=== PATIENT | male | born 1940 | race Caucasian/White ===

== ENCOUNTER 2016-05-08 00:41 | Observation (INO) ==
[2016-05-08] MEDS ORDERED: Ipratropium/Albuterol Neb 3 ML IH ONE (02:54)
--- NOTE | 2016-05-08 02:59 | Emergency Department Note ---
Disposition Clinical Impression: Acute exacerbation of chronic obstructive pulmonary disease, Chronic bronchitis Disposition: Admitted As Inpatient Condition: Fair Referrals: Deepak Mohan CNP [Primary Care Provider] - Forms: ED Satisfaction Letter Time of Disposition: 03:05 SOB HPI - General Chief Complaint: ED Shortness of Breath/Dyspnea Stated Complaint: SOB Time Seen by Provider: 05/08/16 02:33 Source: patient Limitations: no limitations Nursing Notes Reviewed: Yes Vital Signs Reviewed: Yes - History of Present Illness Patient was seen on May 02, , , and again this morning at 9 AM and a second visit now for evaluation of dyspnea and tachypnea. He had be and antibiotics azithromycin recently. Subsequently this morning placed on Levaquin. He reports that he tried to go home and dyspnea kept him awake and he felt like he would smother. no CP , no fever ct this am did nto show pneumonia or PE. Pt Subjective Complaint: shortness of breath, cough, anxiety Onset (ago): day(s) Context: recent illness Severity: severe Consistency/Duration: constant Improves with: oxygen, rest Worsens with: exertion, movement, coughing Known history of: COPD Associated symptoms: Reports: cough, wheezing, sputum production. Denies: nausea/vomiting, syncope, abdominal pain Treatment prior to arrival: oxygen, bronchodilator, other (nerve pill) Cough present: Yes Cough Description: Voluntary, Non-Productive, Moist Cough Frequency: Intermittent Sputum production: Yes Sputum Amount: Scant Sputum Color: White - Related Data Home Medications Medication Instructions Recorded Confirmed Omeprazole [PriLOSEC] 20 mg PO BIDAC 02/17/15 05/08/16 Atenolol [Tenormin] 50 mg PO BID 07/15/15 05/08/16 ClonazePAM [Klonopin] 1 tab PO QID 07/15/15 05/08/16 Ondansetron HCl [Zofran] 8 mg PO BID PRN 07/15/15 05/08/16 Tamsulosin [Flomax] 0.4 mg PO DAILY 07/15/15 05/08/16 Warfarin [Coumadin] 3 mg PO 1800 09/28/15 05/08/16 Albuterol Sulfate [Proair Hfa] 2 puff IH Q4H 11/22/15 05/08/16 Chlorthalidone 25 mg PO DAILY 11/22/15 05/08/16 Ipratropium/Albuterol Neb [Duoneb] 3 ml IH Q6HR 11/22/15 05/08/16 Oxygen 1 l IH HS 11/22/15 05/08/16 Previous Rx's Medication Instructions Recorded GuaiFENesin/Dextromethorphan 5 ml PO Q4-6H PRN #118 ml 05/02/16 [Robitussin Cough-Chest Dm Liq] PredniSONE 40 mg PO DAILY #30 tablet 05/02/16 Levofloxacin [Levaquin] 250 mg PO DAILY #10 tablet 05/07/16 Allergies Allergy/AdvReac Type Severity Reaction Status Date / Time Penicillins Allergy Hives Verified 05/08/16 01:37 Sulfa (Sulfonamide Allergy Hives Verified 05/08/16 01:37 Antibiotics) rosuvastatin [From Crestor] AdvReac Gastrointestinal Verified 05/08/16 01:37 Upset tramadol AdvReac Dizziness Verified 05/08/16 01:37 All systems ED: reviewed and negative except as stated. Respiratory: Reports: as per HPI, cough, dyspnea, wheezes Past Medical History - Past Medical History Medical history: Reports: asthma, atrial fibrillation, COPD, GERD, hyperlipidemia, hypertension Surgical history: Reports: orthopedic, other (Epidural injections), sinus surgery, other (lip/palate surgery) Psychiatric history: Reports: anxiety, depression - Social History Smoking Status: Former smoker Smokeless Tobacco Status: No Alcohol use: Reports: none Drug use: Reports: none Physical Exam Constitutional: Patient is oriented to person, place, and time. Skin color is pink. Appears well hydrated, body habitus inc AP diameter. appears dyspneic at rest Head: Normocephalic and atraumatic. External ear exam normal Nose: Nose normal. Mouth/Throat: Uvula is midline, oropharynx is clear and moist and mucous membranes are normal. Eyes: Conjunctivae nl, extraocular motions and lids are normal. Pupils are equal , round, and reactive to light. Neck: Normal range of motion and phonation normal. Neck supple. Cardiovascular: Normal rate, regular rhythm, normal heart sounds. Pulmonary/Chest: no Respiratory distress. Respiratory Effort normal and breath sounds diminished , wheezing throughout. tachypnea. Abdominal: Soft. Normal appearance and bowel sounds are normal. no tenderness, no masses, no guarding, no rebound Musculoskeletal: Good distal pulses. Soft compartments. Brisk cap refill. Extremities: Normal range of motion.Intact peripheral pulses. No Edema. Extremity skin color nl, no calf tenderness or palpable cords. Neurological: Patient is alert and oriented without evidence of obvious motor deficits Skin: Skin is warm, dry and intact. color is , cap refill is Psychiatric: Patient has anxious mood and affect. Patient speech is normal and behavior is normal. Thought content normal. - General Limitations: no limitations General appearance: alert, anxious Course - Reevaluation(s) Reevaluation #1: disc course w/ dr Thomas who knows pt and his condition well and agrees that he will benefit from short [facility]. he has requested that I write some admiting orders and he will see pt in am. Time: 03:03 Vital Signs Temperature 98.1 F 05/08/16 01:25 Pulse Rate 85 05/08/16 01:25 Respiratory Rate 22 05/08/16 01:25 Blood Pressure 183/97 05/08/16 01:25 O2 Sat by Pulse Oximetry 97 05/08/16 01:25 Temperature 98.1 F 05/08/16 01:25 Pulse Rate 85 05/08/16 01:25 Respiratory Rate 22 05/08/16 01:25 Blood Pressure 183/97 05/08/16 01:25 O2 Sat by Pulse Oximetry 97 05/08/16 01:25 Oxygen Delivery Oxygen Delivery Room Air Shortness of Breath/Dyspnea - [facility] Narrative Medical decision making narrative: pt as intractable exac COPD and will require hospitalization as he has failed outpt management - Medical Records Medical records reviewed: Yes I reviewed the patient's medical records.
[2016-05-08] MEDS ORDERED: OXYGEN IH SCH (04:06)
[2016-05-08] MEDS ORDERED: Acetaminophen 325 MG TABLET PO PRN (04:06)
[2016-05-08] MEDS ORDERED: Naloxone 0.4 MG/ML INJ IVP PRN (04:06)
[2016-05-08] MEDS: ClonazePAM 1 MG TABLET PO SCH ×2 (07:57→12:45)
[2016-05-08] MEDS ORDERED: PredniSONE 10 MG TABLET PO SCH (09:00)
[2016-05-08] MEDS ORDERED: Ipratropium/Albuterol Neb 3 ML IH SCH (10:00)
--- NOTE | 2016-05-08 11:43 | Internal Med History&Physical ---
Date of Encounter: 05/08/16 Time of Encounter: 11:40 Assessment and Plan (1) Acute exacerbation of chronic obstructive pulmonary disease Current visit: Yes Status: Acute Patient has had recent exacerbation of his chronic COPD. It is not severe, does not require oxygen, and he is on a taper of prednisone. He has a nebulizer machine at home as well as oxygen for nighttime use. His chest CT did not show any infiltrate. He is not requiring oxygen supplement in the hospital and his saturations are in the mid to high 90s. I spoken to him about going home today and continue the taper of prednisone. He does not need the Levaquin. Please see the discharge summary. (2) Atrial fibrillation Current visit: Yes Status: Chronic Chronic atrial fibrillation. He is rate controlled. No angina or CHF. No change in his beta rogelio medication. Qualifiers: Qualified Code(s): I48.2 - Chronic atrial fibrillation (3) Anxiety Current visit: Yes Status: Acute He admits to getting anxious when he cannot breathe well. He does use his clonazepam 3 times a day and he states that has been very helpful. I have talked him about adding an SSRI and he said he cannot tolerate Paxil. I will speak with Deepak Mohan his PCP as to her opinion for additional anxiety treatment. She knows him well and he has tried numerous medications without relief or had side effects. (4) Hypertension Current visit: No Status: Acute His blood pressure is not under optimal control. He had been placed on chlorthalidone but he said that that gave him an upset stomach. He no longer uses it. He has been prescribed losartan in the past, for some reason it is not on his medication list. He is to restart that and he will check at home to see if he has that prescription before we call in more. He is to monitor his pressure and report to the office. Qualifiers: Hypertension type: essential hypertension Qualified Code(s): I10 - Essential (primary) hypertension (5) Anticoagulation goal of INR 2 to 3 Current visit: Yes Status: Acute Currently he takes Coumadin and his INR is 1.6. He has been taking Levaquin recently and this may increase that INR. Before changing his dose of Coumadin and I would rather recheck his INR first. Internal Medicine - H&P: HPI Chief complaint: I got short of breath and had to come to the emergency room Admitted From: Emergency Dept Plans for Post Hospital Care: Home History of present illness: Mr. Abraham is a 75 year old male with known history of COPD, hypertension, anxiety, GERD and atrial fibrillation. He had been to the emergency room on May 02, and then again on the in the middle of the night. He had also been seen in the office a few days ago. He had been started on prednisone and Levaquin. He said that in the middle of the night he woke up and he was short of breath and had to come to the emergency room. His repeat workup was negative for PE, pneumonia, or other significant change from his chronic medical problems. However, having been to the ER twice in having seen the same ER doctor twice she called and we discussed admission to observation bed because of his dyspnea. He states he has not had any angina or cardiac type chest pain or palpitations. He has not had significant sputum production or hemoptysis. He has had no recent travel or unusual exposures. He states that he gets anxious when he cannot breathe. He has oxygen at home, nebulizer machine as well as his usual medications including Klonopin. He states he feels better now. The nurses report that he has been out of bed and saturations are in the mid 90s on room air. He states the nebulizer treatments have been helpful. He has not been requiring oxygen. Past Med Surg Social Fam HX - Past Medical History Medical history: asthma, atrial fibrillation, COPD, GERD, hyperlipidemia, hypertension Psychiatric history: anxiety, depression - Past Surgical History Surgical History: orthopedic, other, sinus surgery, other - Social History Smoking Status: Former smoker Smokeless Tobacco Status: No Alcohol use: none Drug use: none - Family History Mother History Unknown: Yes Father History Unknown: Yes Internal Medicine - H&P: Meds Omeprazole [PriLOSEC] 20 mg PO BIDAC 02/17/15 [History] Atenolol [Tenormin] 50 mg PO BID 07/15/15 [History] ClonazePAM [Klonopin] 1 tab PO TID 07/15/15 [History] Warfarin [Coumadin] 3 mg PO 1800 09/28/15 [History] Albuterol Sulfate [Proair Hfa] 2 puff IH Q4H 11/22/15 [History] Ipratropium/Albuterol Neb [Duoneb] 3 ml IH Q6HR 11/22/15 [History] Oxygen 1 l IH HS 11/22/15 [History] GuaiFENesin/Dextromethorphan [Robitussin Cough-Chest Dm Liq] 5 ml PO Q4-6H PRN # 118 ml 05/02/16 [Rx] PredniSONE 40 mg PO DAILY #30 tablet 05/02/16 [Rx] Levofloxacin [Levaquin] 250 mg PO DAILY #10 tablet 05/07/16 [Rx] Allergies Penicillins Allergy (Verified 05/08/16 04:45) Hives Sulfa (Sulfonamide Antibiotics) Allergy (Verified 05/08/16 04:45) Hives rosuvastatin [From Crestor] Adverse Reaction (Verified 05/08/16 04:45) Gastrointestinal Upset tramadol Adverse Reaction (Verified 05/08/16 04:45) Dizziness All Systems PM: A 10-system review of systems was performed and is negative for pertinent findings except as documented above in the HPI. - Constitutional Constitutional: no chills, no fever(s), no falls - EENT Eyes: no blurry vision, no other visual disturbances Ears: no ear discharge, no ear pain Nose, mouth and throat: no dysphagia, no neck pain, no sinus pressure, no sore throat - Cardiovascular Cardiovascular ROS IM: dyspnea, no chest pain, no irregular heart rhythm, no lightheadedness, no palpitations - Respiratory Respiratory: dyspnea, no hemoptysis, no pain on inspiration, no change in phlegm color - Gastrointestinal Gastrointestinal: no abdominal pain, no constipation, no diarrhea - Genitourinary Genitourinary ROS male: no difficulty urinating, no urinary urgency - Musculoskeletal Musculoskeletal ROS IM: no muscle weakness - Integumentary Integumentary IM: no new lesions, no rash - Neurological Neurological ROS: no confusion, no focal weakness, no frequent falls, no loss of vision - Psychiatric Psychiatric: anxiety (He admits that he does become anxious when he cannot breathe.) - Constitutional Vitals: Temp Pulse Resp BP Pulse Ox 98.7 F 78 18 161/97 94 L 05/08/16 07:36 05/08/16 07:36 05/08/16 07:36 05/08/16 07:36 05/08/16 07:36 General appearance: Present: A&O X 3, no acute distress, answers questions appropriately (Sometimes his conversation is tangential and repetitive) - Eye Eye exam: Present: EOMI, normal appearance - ENT ENT exam: Present: mucous membranes moist, TM's normal bilaterally - Neck Neck exam general surgery: Absent: lymphadenopathy, thyromegaly - Respiratory Respiratory exam: Present: decreased breath sounds, prolonged expiratory phase, rhonchi (Occasional rhonchi that clears with cough.), wheezes (Slight intermittent end expiratory wheezes). Absent: accessory muscle use, rales, respiratory distress - Cardiovascular Cardiovascular exam: Present: irregular rhythm, +S1, +S2. Absent: systolic murmur, tachycardia - GI/Abdominal GI/Abdominal exam: Present: soft. Absent: guarding, hepatomegaly, mass, tenderness - Extremities Exam Extremities exam: Absent: calf tenderness, pedal edema, tenderness - Neurological Exam Neurological exam: Present: alert, CN II-XII intact, no focal deficits Internal Med - H&P Results - Diagnostic Studies CT scan - chest Additional comments: CT scan of the chest showed no infiltrate. Does show COPD/emphysematous changes. - VTE Reasons for not Prescribing Prophylaxis: Not indicated-Anticoagulated or INR therapeutic
[2016-05-08 12:01] VITALS: BP 167/97
--- NOTE | 2016-05-08 12:58 | Discharge Summary ---
Date of Encounter: 05/08/16 Time of Encounter: 12:55 - Discharge Diagnosis (1) Acute exacerbation of chronic obstructive pulmonary disease Priority: Primary Status: Acute Comments: He has had acute exacerbation of his COPD. He has been seen in the ER at least 4 times as well as in the office. He was admitted in the middle the night and kept in observation and reevaluated today. His lungs show diminished breath sounds with slight end expiratory wheeze. He has occasional rhonchi sounds and this cleared with cough. He has not required any oxygen and his saturations were in the mid to high 90s. At discharge he will continue his taper of prednisone. I do not think he needs his Levaquin and it was destroyed. He has nebulizer at home, oxygen for when necessary use as well as his Klonopin for anxiety when he gets dyspneic. He will follow-up with Deepak Mohan in the office. (2) Atrial fibrillation Priority: Secondary Status: Chronic Comments: He has chronic atrial fibrillation. He has had no angina or CHF. His rate is controlled. He is anticoagulated with Coumadin with present INR 1.6, but he recently started Levaquin. He will have his INR repeated as planned on Monday and I did not change his dose at the present time. Qualifiers: Atrial fibrillation type: chronic Qualified Code(s): I48.2 - Chronic atrial fibrillation (3) Anxiety Priority: Secondary Status: Acute Comments: He had exacerbation of his anxiety when he could not breathe well. He admits that he gets anxious and Klonopin has been helpful. I suggested an SSRI, but he said he has tried several and did not tolerate them or they did not work. I think an additional non-benzodiazepine type of medication will be of help, I will defer this to Deepak Mohan who knows him well and knows what has failed in the past. I also had a conversation regarding recommendation for ECF so he would have 24 hour care available and yet he could still leave the facility to do the things he wants to do. He is against that idea and does not want to leave his apartment. I was told that his daughter had the same conversation with him as well. (4) Hypertension Priority: Secondary Status: Acute Comments: His blood pressure during this stay is mildly elevated. On my repeat his blood pressure was 154/100. He was previously started on chlorthalidone but did not tolerate it because of stomach pain. He is not sure whether he takes losartan, but it was not in his back that he brought of his current meds. I told him to restart the losartan and monitor the blood pressure. Qualifiers: Hypertension type: essential hypertension Qualified Code(s): I10 - Essential (primary) hypertension (5) Anticoagulation goal of INR 2 to 3 Priority: Secondary Status: Chronic Comments: His current INR is 1.6, I did not adjust his Coumadin because he has been on antibiotics recently and I suspect his INR may go up. He is due to have his INR repeated on Monday. - Discharge Medications Prescriptions: Budesonide/Formoterol 160/4.5 [Symbicort 160/4.5] 1 puff IH BIDR #1 hfa.aer.ad Losartan [Cozaar] 25 mg PO DAILY #30 tablet Home Medications: Omeprazole [PriLOSEC] 20 mg PO BIDAC 02/17/15 [History] Atenolol [Tenormin] 50 mg PO BID 07/15/15 [History] ClonazePAM [Klonopin] 1 tab PO TID 07/15/15 [History] Warfarin [Coumadin] 3 mg PO 1800 09/28/15 [History] Albuterol Sulfate [Proair Hfa] 2 puff IH Q4H 11/22/15 [History] Ipratropium/Albuterol Neb [Duoneb] 3 ml IH Q6HR 11/22/15 [History] Oxygen 1 l IH HS 11/22/15 [History] GuaiFENesin/Dextromethorphan [Robitussin Cough-Chest Dm Liq] 5 ml PO Q4-6H PRN # 118 ml 05/02/16 [Rx] PredniSONE 40 mg PO DAILY #30 tablet 05/02/16 [Rx] Acetaminophen [Tylenol] 650 mg PO Q6HR PRN #0 tablet 05/08/16 [Rx] Budesonide/Formoterol 160/4.5 [Symbicort 160/4.5] 1 puff IH BIDR #1 hfa.aer.ad 05/08/16 [Rx] Losartan [Cozaar] 25 mg PO DAILY #30 tablet 05/08/16 [Rx] Allergies/Adverse Reactions: Allergies Penicillins Allergy (Verified 05/08/16 04:45) Hives Sulfa (Sulfonamide Antibiotics) Allergy (Verified 05/08/16 04:45) Hives rosuvastatin [From Crestor] Adverse Reaction (Verified 05/08/16 04:45) Gastrointestinal Upset tramadol Adverse Reaction (Verified 05/08/16 04:45) Dizziness Date of admission: 05/08/16 02:48 Primary care physician: Deepak Mohan CNP Discharging clinician: Dilshad Gabriel Anticipated date of discharge: 05/08/16 - Patient Status Disposition: Home, Self-Care Condition: Good Functional capacity at discharge: independent ambulation Overall status at discharge: patient is progressing back to baseline - Discharge Instructions Instructions: Chronic Obstructive Pulmonary Disease (DC) Follow Up With: Deepak Mohan CNP [Primary Care Provider] - Forms: ED Satisfaction Letter - Diet and Activity Activity: increase activity as tolerated, wear oxygen at night Diet: regular diet Interval History: See the history and physical documenting his current status. Hospital course: Mr. Abraham is a 75 year old male with known COPD, hypertension, atrial fibrillation and anxiety. He was admitted overnight in observation bed having been to the ER at least 4 times, 2 in the last 24 hours as well as an office visit. He was admitted for exacerbation of COPD. He did not require any oxygen. We continued his usual nebulizer treatments and medication. He did not need any more aggressive care than that. His lungs show diminished breath sounds and occasional rhonchi that cleared with cough. He had mild end expiratory wheezes but no respiratory distress. He admits that he became anxious and that is the main reason why he came to the hospital. He was sent home on the same pulmonary medications including his taper of prednisone. I stopped his Levaquin that was initiated in the ER a few visits ago. The CT scan was negative for infiltrate. He will continue with his Klonopin for anxiety and I will discuss with Deepak Mohan his PCP regarding an additional SSRI type medication may be of help as well. We also talked about ECF placement so he would have 24-hour nursing care available to him but he declines that offer. He will follow-up in the office. - Time Spent with Patient Total time spent providing and/or coordinating discharge services: - Constitutional Vitals: Temp Pulse Resp BP Pulse Ox 98.9 F 89 20 167/97 96 05/08/16 11:00 05/08/16 11:00 05/08/16 11:00 05/08/16 11:00 05/08/16 11:00 General appearance: Present: A&O X 3, no acute distress, answers questions appropriately (Sometimes his conversation is tangential and repetitive) - Respiratory Respiratory exam: Present: decreased breath sounds, rhonchi (Occasional rhonchi that clears with cough.), wheezes (Slight end expiratory wheezes but no respiratory distress.). Absent: respiratory distress - Cardiovascular Cardiovascular exam: Present: irregular rhythm, +S1, +S2. Absent: tachycardia - GI/Abdominal GI/Abdominal exam: Present: soft. Absent: mass, tenderness - Extremities Exam Extremities exam: Absent: calf tenderness, cyanotic, pedal edema, tenderness - VTE Reasons for not Prescribing Prophylaxis: Not indicated-Anticoagulated or INR therapeutic
[2016-05-08] MEDS ORDERED: *HR* Warfarin 1 MG TABLET PO SCH (18:00)
== END 2016-05-08 14:30 | disposition home or self-care (01) ==
LOC: INPGRE 00:41 → EMEROOGRE 00:41 → INPGRE 03:45
PROVIDERS: ADMIT Family Medicine; ATTEND Family Medicine

== ENCOUNTER 2018-02-27 16:19 | Inpatient (IN) ==
[2018-02-27] MEDS ORDERED: Ipratropium/Albuterol Neb 3 ML ONE ×2 (16:47→18:26)
[2018-02-27] MEDS ORDERED: Ipratropium/Albuterol Neb 3 ML IH ONE (16:48)
[2018-02-27 16:57] LABS: Basophils % 0.1 %; Hematocrit 41.1 % (37.5-50.1); Hemoglobin 14.6 g/dL (12.9-16.9); Immature Granulocytes % 0.6 % (0-4); Lymphocytes # 0.6 K/mcL (0.6-4.6); Lymphocytes % 3.5 %; Mean Corpuscular HGB Conc 35.5 g/dL (31.6-35.5); Mean Corpuscular Hemoglobin 31.3 pg (28.0-33.3); Mean Corpuscular Volume 88.2 fL (83.0-100.0); Mean Platelet Volume 8.9 fL (9.4-12.4); Monocytes # 0.6 K/mcL (0.0-1.3); Monocytes % 3.5 %; Neutrophils # 16.5 K/mcL (1.6-8.9); Platelet Count 171 K/mcL (140-400); Red Blood Count 4.66 M/mcL (4.19-5.50); Red Cell Distribution Width 13.2 % (11.5-14.5); Segmented Neutrophils % 92.3 %
[2018-02-27] MEDS ORDERED: 0.9 % Sodium Chloride 1,000 ML IVC SCH (17:00)
[2018-02-27 17:13] LABS: Troponin I 0.03 ng/mL (< 0.04)
[2018-02-27 17:14] LABS: Alanine Aminotransferase 26 Units/L (7-52); Albumin 4.1 g/dL (3.5-5.7); Albumin/Globulin Ratio 1.5 (1.1-2.2); Alkaline Phosphatase 85 Units/L (34-104); Aspartate Amino Transferase 26 Units/L (13-39); BUN/Creatinine Ratio 17 (6-26); Blood Urea Nitrogen 16 mg/dL (8-23); Carbon Dioxide 29 mEq/L (23-29); Chloride 85 mEq/L (98-107); Creatine Kinase 149 Units/L (30-223); Globulin 2.8 g/dL (2.4-3.5); Glucose 149 mg/dL (70-105); Osmolality,Calculated 256 (280-300); Potassium 4.7 mEq/L (3.5-5.1); Sodium 121 mEq/L (136-145); Total Protein 6.9 g/dL (6.4-8.9); eGFR For Non-African Americans > 60 (> 60)
--- NOTE | 2018-02-27 17:14 | Emergency Department Note ---
Disposition Clinical Impression: Hyponatremia Bilateral pneumonia Qualifiers: Pneumonia type: due to unspecified organism Lung location: lower lobe of lung Qualified Code(s): J18.1 - Lobar pneumonia, unspecified organism Disposition: Admitted As Inpatient Altered Mental Status HPI - General Chief Complaint: ED Altered Mental Status Stated Complaint: altered mental status Time Seen by Provider: 02/27/18 16:26 Source: patient, EMS Mode of arrival: EMS Limitations: altered mental status Nursing Notes Reviewed: Yes Vital Signs Reviewed: Yes - History of Present Illness HPI Narrative: 77-year-old male presents from the detention with complaints of increased confusion, cough and low sodium. Patient reports he has had a cough in the past 2 days. Outpatient labs showed a low sodium at 119. Patient had a negative portable chest x-ray at detention. Patient reports he developed a cough in the past 2 days and mild shortness of breath. Typically. Patient wears oxygen at night as needed. Patient has been needing oxygen during the day and patient's sats were 85% on room air upon arrival. Patient denies any chest pain. care home right report some increased confusion. Patient is aware. Similar areas. Patient does not know the year but does know the month. MD complaint: altered mental status, confusion Onset (ago): Just [employer] Pain Severity: moderate Consistency of Symptoms: waxing and waning Associated symptoms: Reports: cough, shortness of breath. Denies: fever, headaches Treatments prior to arrival: other (steroids antibiotics) - Related Data Home Medications Medication Instructions Recorded Confirmed Albuterol Sulfate [Proair Hfa] 2 puff IH Q4H PRN 11/22/15 02/27/18 Ipratropium/Albuterol Neb [Duoneb] 3 ml IH Q6HR 11/22/15 02/27/18 Oxygen 2 l IH HS 11/22/15 02/27/18 Losartan [Cozaar] 25 mg PO BID 08/21/16 02/27/18 Metoprolol [Lopressor] 50 mg PO BID 07/01/17 02/27/18 Acetaminophen 650 mg PO Q6H PRN 02/27/18 02/27/18 Budesonide/Formoterol 160/4.5 2 puff IH BIDR 02/27/18 02/27/18 [Symbicort 160/4.5] Buspirone HCl [Buspar] 5 mg PO BID 02/27/18 02/27/18 Divalproex (12 HR) [Depakote (12 250 mg PO BID 02/27/18 02/27/18 HR)] Doxycycline 100 mg PO BID 02/27/18 02/27/18 Mag Hydrox/Al Hydrox/Simeth 30 ml PO Q6H PRN 02/27/18 02/27/18 [Antacid Suspension] Magnesium Hydroxide [Milk of 30 ml PO DAILY PRN 02/27/18 02/27/18 Magnesia] Melatonin/Pyridoxine HCl (B6) 1 each PO HS 02/27/18 02/27/18 [Melatonin 3 mg Tablet] Ondansetron HCl [Zofran] 4 mg PO Q8HR PRN 02/27/18 02/27/18 Sertraline [Zoloft] 50 mg PO DAILY 02/27/18 02/27/18 clonazePAM [Clonazepam] 0.5 mg PO BID 02/27/18 02/27/18 predniSONE [PredniSONE] 40 mg PO DAILY 02/27/18 02/27/18 risperiDONE [RisperDAL] 0.25 mg PO BID 02/27/18 02/27/18 traZODone [TraZODone] 50 mg PO HS 02/27/18 02/27/18 Allergies Allergy/AdvReac Type Severity Reaction Status Date / Time Penicillins Allergy Hives Verified 11/13/17 02:34 Sulfa (Sulfonamide Allergy Hives Verified 11/13/17 02:34 Antibiotics) rosuvastatin [From Crestor] AdvReac Gastrointestinal Verified 11/13/17 02:34 Upset tramadol AdvReac Dizziness Verified 11/13/17 02:34 All systems ED: reviewed and negative except as stated. Review of Systems: As Per HPI Constitutional: Reports: weakness. Denies: fever, chills Cardiovascular: Denies: chest pain, palpitations Respiratory: Reports: cough, dyspnea. Denies: wheezes Gastrointestinal: Denies: nausea, vomiting Integumentary: Denies: rash Neurological: Reports: confusion. Denies: headache Past Medical History - Past Medical History Attestation: Yes The following information was validated with the patient. Source: patient, obtained from family, nursing notes reviewed Medical history: Reports: asthma, atrial fibrillation, COPD, CVA, GERD, hyperlipidemia, hypertension Surgical history: Reports: orthopedic, other, sinus surgery, other Psychiatric history: Reports: anxiety, depression - Social History Smoking Status: Current some day smoker Smokeless Tobacco Status: No Alcohol use: Reports: none Drug use: Reports: none Physical Exam - General Limitations: no limitations General appearance: alert, in no apparent distress - Head Head exam: atraumatic, normocephalic - Eye Eye exam: Present: PERRL, EOMI. Absent: conjunctival injection - ENT ENT exam: normal oropharynx, mucous membranes moist, TM's normal bilaterally - Neck Neck exam: Present: normal inspection, full ROM. Absent: lymphadenopathy - Expanded Neck Exam Neck exam focused ED: Absent: JVD, carotid bruit - Chest Chest inspection: Present: normal inspection, symmetric chest wall rise - Expanded Respiratory Exam Location: rhonchi: Left, Right, Lower - Cardiovascular Cardiovascular exam: Present: regular rate, irregular rhythm - Abdominal Exam Abdominal exam: Present: soft, Non-Tender, normal bowel sounds - Extremities Exam Extremities exam: Present: normal inspection, full ROM. Absent: pedal edema - Expanded Neurological Exam Patient oriented to: Present: person, place Speech: Present: fluid speech Cranial nerves: EOM function (II, III, IV, ): Normal, facial sensation (V): Normal, facial palsy (VII): Normal, gag reflex (IX): Normal, spinal accessory function (XI): Normal, tongue deviation (XII): Normal Coma Scale Eye Opening: Spontaneous Coma Scale Motor Response: Obeys Commands Coma Scale Verbal Response: Oriented Coma Scale Total: 15 - Psychiatric Psychiatric exam: Present: normal affect - Skin Skin exam: Present: warm, dry, intact, normal color Course - Reevaluation(s) Reevaluation #1: Patient meets sepsis criteria with 2 SIRS criteria of respiratory rate greater than 20 and WBC count greater than 12,000. Patient has signs of organ dysfunction with lactic acid level elevated at 2.4. Have opened up patient's fluids wide open. Levaquin has been ordered. Time: 17:15 Vital Signs Temperature 98.5 F 02/27/18 16:20 Pulse Rate 74 02/27/18 16:20 Respiratory Rate 22 02/27/18 16:20 Blood Pressure 151/78 02/27/18 16:20 O2 Sat by Pulse Oximetry 85 02/27/18 16:20 Temperature 98.0 F 02/28/18 04:34 Pulse Rate 78 02/28/18 04:34 Respiratory Rate 20 02/28/18 04:34 Blood Pressure 144/77 02/28/18 04:34 O2 Sat by Pulse Oximetry 94 02/28/18 04:34 Oxygen Delivery Oxygen Delivery Nasal Cannula Altered Mental Status - Differential Diagnosis Likely: altered mental status, delirium, hyponatremia, sepsis - Lab Data Lab results reviewed: Yes I reviewed the patient's lab results. Lab results narrative: Patient with elevated white count at 18,000. Patient's lactic acid level is elevated. Patient's sodium is low. Results discussed with patient. Result diagrams: 02/28/18 07:32 02/28/18 07:32 Lab Results 02/27/18 02/27/18 02/27/18 Range/Units 16:30 16:30 16:30 WBC 17.9 H (4.3-11.1) K/mcL RBC 4.66 (4.19-5.50) M/mcL Hgb 14.6 (12.9-16.9) g/dL Hct 41.1 (37.5-50.1) % MCV 88.2 (83.0-100.0) fL MCH 31.3 (28.0-33.3) pg MCHC 35.5 (31.6-35.5) g/dL RDW 13.2 (11.5-14.5) % Plt Count 171 (140-400) K/mcL MPV 8.9 L (9.4-12.4) fL Immature Gran % 0.6 (0-4) % Seg Neutrophils % 92.3 % Lymphocytes % 3.5 % Monocytes % 3.5 % Eosinophils % 0.0 % Basophils % 0.1 % Neutrophils # 16.5 H (1.6-8.9) K/mcL Lymphocytes # 0.6 (0.6-4.6) K/mcL Monocytes # 0.6 (0.0-1.3) K/mcL Eosinophils # 0.0 (0.0-0.6) K/mcL Basophils # 0.0 (0.0-0.2) K/mcL Sodium 121 L (136-145) mEq/L Potassium 4.7 (3.5-5.1) mEq/L Chloride 85 L (98-107) mEq/L Carbon Dioxide 29 (23-29) mEq/L BUN 16 (8-23) mg/dL Creatinine 0.96 (0.70-1.30) mg/dL Est GFR ( Amer) > 60 (> 60) Est GFR (Non-Af Amer) > 60 (> 60) BUN/Creatinine Ratio 17 (6-26) Glucose 149 H (70-105) mg/dL Calculated Osmolality 256 L (280-300) Lactic Acid 2.4 H (0.5-2.2) mmol/L Calcium 9.0 (8.6-10.3) mg/dL Total Bilirubin 1.0 (0.3-1.0) mg/dL AST 26 (13-39) Units/L ALT 26 (7-52) Units/L Alkaline Phosphatase 85 (34-104) Units/L Creatine Kinase 149 (30-223) Units/L Troponin I 0.03 (< 0.04) ng/mL B-Natriuretic Peptide (Less than 100) pg/mL Serum Total Protein 6.9 (6.4-8.9) g/dL Albumin 4.1 (3.5-5.7) g/dL Globulin 2.8 (2.4-3.5) g/dL Albumin/Globulin Ratio 1.5 (1.1-2.2) Urine Color (Yellow) Urine Clarity (Clear) Urine pH (5.0-8.0) pH Units Ur Specific [place] (1.010-1.025) Urine Protein (Neg-Trace) mg/dL Urine Glucose (UA) (Normal) mg/dL Urine Ketones (Negative) mg/dL Urine Blood (Negative) Urine Nitrite (Negative) Urine Bilirubin (Negative) Urine Urobilinogen (Normal) mg/dL Ur Leukocyte Esterase (Negative) Urine Microscopic RBC (0-3) per hpf Amorphous Sediment (Few) Ur Culture Indicated? (NO) 02/27/18 02/27/18 02/27/18 Range/Units 16:30 17:58 20:50 WBC (4.3-11.1) K/mcL RBC (4.19-5.50) M/mcL Hgb (12.9-16.9) g/dL Hct (37.5-50.1) % MCV (83.0-100.0) fL MCH (28.0-33.3) pg MCHC (31.6-35.5) g/dL RDW (11.5-14.5) % Plt Count (140-400) K/mcL MPV (9.4-12.4) fL Immature Gran % (0-4) % Seg Neutrophils % % Lymphocytes % % Monocytes % % Eosinophils % % Basophils % % Neutrophils # (1.6-8.9) K/mcL Lymphocytes # (0.6-4.6) K/mcL Monocytes # (0.0-1.3) K/mcL Eosinophils # (0.0-0.6) K/mcL Basophils # (0.0-0.2) K/mcL Sodium (136-145) mEq/L Potassium (3.5-5.1) mEq/L Chloride (98-107) mEq/L Carbon Dioxide (23-29) mEq/L BUN (8-23) mg/dL Creatinine (0.70-1.30) mg/dL Est GFR ( Amer) (> 60) Est GFR (Non-Af Amer) (> 60) BUN/Creatinine Ratio (6-26) Glucose (70-105) mg/dL Calculated Osmolality (280-300) Lactic Acid 1.7 (0.5-2.2) mmol/L Calcium (8.6-10.3) mg/dL Total Bilirubin (0.3-1.0) mg/dL AST (13-39) Units/L ALT (7-52) Units/L Alkaline Phosphatase (34-104) Units/L Creatine Kinase (30-223) Units/L Troponin I (< 0.04) ng/mL B-Natriuretic Peptide 440 H (Less than 100) pg/mL Serum Total Protein (6.4-8.9) g/dL Albumin (3.5-5.7) g/dL Globulin (2.4-3.5) g/dL Albumin/Globulin Ratio (1.1-2.2) Urine Color Yellow (Yellow) Urine Clarity Slightly Cloudy A (Clear) Urine pH 5.5 (5.0-8.0) pH Units Ur Specific [place] <= 1.005 L (1.010-1.025) Urine Protein Negative (Neg-Trace) mg/dL Urine Glucose (UA) Normal (Normal) mg/dL Urine Ketones Negative (Negative) mg/dL Urine Blood Trace-lysed H (Negative) Urine Nitrite Negative (Negative) Urine Bilirubin Negative (Negative) Urine Urobilinogen Normal (Normal) mg/dL Ur Leukocyte Esterase Negative (Negative) Urine Microscopic RBC 0-3 (0-3) per hpf Amorphous Sediment Few (Few) Ur Culture Indicated? NO (NO) - Radiology Data Radiology results reviewed: Yes I reviewed the patient's radiology results. Chest x-ray was interpreted by the radiologist and reviewed by me as positive for bilateral basilar linear opacities question bilateral early infiltrates. Results discussed patient. - EKG Data EKG attestation: Yes I reviewed and interpreted this EKG. Rhythm: A.Fib Voltage: decreased voltage throughout Q waves: v2, v3 When compared to previous EKG there are: no significant changes Interpretation: unchanged when compared to prior tracing (date) (12/13/17) TPA Checklist - LKW: 3-4.5 hrs Add. Warnings/Precautions Patient/family understanding: The patient/family members have been counseled and understood the risk, benefit, and alternatives of treatment. Sepsis Event Note - Evaluation Sepsis Screen: No Definite Risk Current Stage of Suspected Sepsis: sepsis Possible Source of Sepsis: pulmonary - Focused Exam Date of Encounter: 02/27/18 Time of Encounter: 16:25 Respiratory Exam: Present: wheezes Cardiovascular Exam: Present: RRR Capillary Refill: < 2 seconds Peripheral Pulse Strength: 3+ normal Peripheral Pulse Location: Radial Skin Exam: normal turgor - Bedside Monitoring Bedside Ultrasound Performed: No Passive Leg raise/fluid bolus: not performed
[2018-02-27] MEDS ORDERED: Levofloxacin 750 MG/150 ML 750 MG/150 ML BAG IVPB ONE (17:16)
[2018-02-27] MEDS ORDERED: Acetaminophen 325 MG TABLET PO PRN (17:59)
[2018-02-27] MEDS ORDERED: MOM Conc 10 ML UD.LIQ PO PRN (17:59)
[2018-02-27 18:06] LABS: Bilirubin,Urine Negative (Negative); Blood,Urine Trace-lysed (Negative); Clarity,Urine Slightly Cloudy (Clear); Glucose,Urine (UA) Normal (Normal); Ketones,Urine Negative (Negative); Leukocyte Esterase,Urine Negative (Negative); Nitrite,Urine Negative (Negative); PH,Urine 5.5 pH Units (5.0-8.0); Protein,Urine Negative (Neg-Trace); Specific Gravity,Urine <= 1.005 (1.010-1.025); Urobilinogen,Urine Normal (Normal)
[2018-02-27] MEDS ORDERED: Naloxone 0.4 MG/ML INJ IVP PRN (18:06)
[2018-02-27 18:07] LABS: Color,Urine Yellow (Yellow)
[2018-02-27 18:09] LABS: Amorphous Sediment,Urine Few (Few); RBC,Urine 0-3 per hpf (0-3)
[2018-02-27] MEDS ORDERED: NON-FORMULARY MEDICATION 1 EACH EACH (Oxygen [Oxygen] 2 L) IH SCH (21:00)
[2018-02-27] MEDS: 0.9 % Sodium Chloride 1,000 ML IVC SCH (21:58)
[2018-02-27] MEDS: Divalproex (12 HR) 250 MG TABLET PO SCH (21:59)
[2018-02-27] MEDS: clonazePAM 0.5 MG TABLET PO SCH (22:00)
[2018-02-27] MEDS: Melatonin 3 MG TABLET PO SCH (22:00)
[2018-02-27] MEDS: Ipratropium/Albuterol Neb 3 ML IH SCH (22:06)
[2018-02-27] MEDS: risperiDONE 0.25 MG TABLET PO SCH (22:11)
[2018-02-28] MEDS: Ipratropium/Albuterol Neb 3 ML IH SCH ×4 (03:09→21:08)
[2018-02-28] MEDS: 0.9 % Sodium Chloride 1,000 ML IVC SCH ×2 (06:18→12:02)
[2018-02-28 07:42] LABS: Basophils % 0.2 %; Eosinophils # 0.1 K/mcL (0.0-0.6); Eosinophils % 0.4 %; Hematocrit 38.8 % (37.5-50.1); Hemoglobin 13.4 g/dL (12.9-16.9); Immature Granulocytes % 0.3 % (0-4); Lymphocytes # 1.3 K/mcL (0.6-4.6); Lymphocytes % 10.2 %; Mean Corpuscular HGB Conc 34.5 g/dL (31.6-35.5); Mean Corpuscular Hemoglobin 30.9 pg (28.0-33.3); Mean Corpuscular Volume 89.6 fL (83.0-100.0); Mean Platelet Volume 8.8 fL (9.4-12.4); Monocytes # 1.5 K/mcL (0.0-1.3); Monocytes % 11.2 %; Neutrophils # 10.1 K/mcL (1.6-8.9); Platelet Count 158 K/mcL (140-400); Red Blood Count 4.33 M/mcL (4.19-5.50); Red Cell Distribution Width 13.5 % (11.5-14.5); Segmented Neutrophils % 77.7 %
[2018-02-28 08:00] LABS: BUN/Creatinine Ratio 16 (6-26); Blood Urea Nitrogen 14 mg/dL (8-23); Calcium 8.9 mg/dL (8.6-10.3); Carbon Dioxide 32 mEq/L (23-29); Chloride 93 mEq/L (98-107); Glucose 98 mg/dL (70-105); Osmolality,Calculated 268 (280-300); Potassium 4.9 mEq/L (3.5-5.1); Sodium 129 mEq/L (136-145); eGFR For Non-African Americans > 60 (> 60)
[2018-02-28] MEDS: risperiDONE 0.25 MG TABLET PO SCH ×2 (08:03→21:08)
[2018-02-28] MEDS: Divalproex (12 HR) 250 MG TABLET PO SCH ×2 (08:04→21:07)
[2018-02-28] MEDS: clonazePAM 0.5 MG TABLET PO SCH ×2 (08:04→16:33)
[2018-02-28] MEDS: *HR* Enoxaparin 40 MG/0.4 ML SYRINGE SQ SCH (08:04)
[2018-02-28] MEDS: Ondansetron ODT 4 MG TAB.RAPDIS PO PRN (09:43)
--- NOTE | 2018-02-28 10:06 | Internal Med History&Physical ---
Date of Encounter: 02/28/18 Time of Encounter: 09:56 Assessment and Plan (1) Bilateral pneumonia Current visit: Yes Status: Acute History of hypoxia, leukocytosis, fever, chest x-ray with bibasilar infiltrates all of which support diagnosis of bilateral pneumonia. Had elevated lactate in the ER and received IV fluids. Lactate is now normal. Blood pressure has been good throughout. He is on Levaquin intravenously. We will continue the same for now. Follow-up lab work has been ordered. His breathing is comfortable at this point. Qualifiers: Pneumonia type: due to unspecified organism Lung location: lower lobe of lung Qualified Code(s): J18.1 - Lobar pneumonia, unspecified organism (2) Hyponatremia Current visit: Yes Status: Acute Patient is found to have hyponatremia. He was 119 at the skilled nursing, 121 now. This may be the source of some of the confusion as well. No history of seizure activity. With improvement of the sodium with IV fluids we will continue the same for now. He seems to be eating appropriately and we anticipate normalization soon. Further workup if not normalizing. He is not on any diuretic that we are aware of. No vomiting or diarrhea that we are aware of. (3) Change in mental status Current visit: Yes Status: Acute I have taken care of this patient previously, prior to his skilled nursing admission, and his baseline is dementia with occasional confusion. Poor short- term memory and repeatedly asks questions. To me currently he appears be at his baseline except for the story of being at a camp in [place], and no recollection that he has been in the skilled nursing for several months. I suspect mental status changes from his pneumonia as well as his hyponatremia anticipate resolution back to baseline with treatment of his hyponatremia and pneumonia. No focal neurological change to suggest we need to do CT scan of head. Qualifiers: Altered mental status type: disorientation Qualified Code(s): R41.0 - Disorientation, unspecified (4) Dementia Current visit: Yes Status: Acute Chronic dementia as mentioned above. Recent decompensation with infection and hyponatremia. He will have alarms on his bed, etc. Continue his current medication including antipsychotic medication as per the psychiatrist. Qualifiers: Dementia type: unspecified type Dementia behavioral disturbance: with beh avioral disturbance Qualified Code(s): F03.91 - Unspecified dementia with behavioral disturbance (5) Atrial fibrillation Current visit: Yes Status: Chronic Chronic atrial fibrillation. Not a great candidate for anticoagulation because of compliance issues. No CHF or angina. Rate controlled. Qualifiers: Atrial fibrillation type: chronic Qualified Code(s): I48.2 - Chronic atrial fibrillation (6) Anxiety Current visit: Yes Status: Acute He has had anxiety for years. He is on a combination of Klonopin as well as Risperdal per the psychiatrist. We will continue the same for now. (7) DVT prophylaxis Current visit: Yes Status: Acute Patient will be on Lovenox as we anticipate he will be in bed a lot. No current signs of DVT. Internal Medicine - H&P: HPI Chief complaint: I think I was sick at my stomach Admitted From: Long-term Nursing Facility Plans for Post Hospital Care: Transfer Intermediate Facility History of present illness: Mr. Abraham is a 77 year old male with known history of dementia, chronic atrial fibrillation, hypertension and anxiety has been in a skilled nursing for the past several months because of inability to take care of himself at home because of d ementia and anxiety. Patient is a poor historian and cannot give adequate information. It was reported that the patient has had increased confusion for the past few days. Workup in the ECF included sodium 119 and negative chest x-ray. He was sent to the emergency room for further evaluation and was found to have bibasilar infiltrates, elevated white blood cell count, sodium 121, elevated lactate of 2.4 and increased confusion from his baseline. The morning after admission patient is still a poor historian. He thinks he has been at a camp in [place] last week, as well as a hospital in [place] and thinks he has stomach and nerve problems. He thinks he has been to the skilled nursing for just a few days and taken care of by nurse practitioner Chela Mercedes. He knows his birthday and his children's names, but he thinks it is March 2009. No further pertinent information available from the patient Past Med Surg Social Fam HX - Past Medical History Source: old records reviewed Medical history: asthma, atrial fibrillation, COPD, dementia, GERD, hyperlipidemia, hypertension Additional medical history: HYPOKALEMIA. BPH. CERVICAL SPONDYLOSIS. CERVICAL RADICULOPATHY. PSYCHOSIS. INSOMNIA Psychiatric history: anxiety, depression - Past Surgical History Surgical History: orthopedic, other (Laminectomy ), sinus surgery, other Additional surgical history: sinus surgery - Social History Smoking Status: Current some day smoker Smokeless Tobacco Status: No Alcohol use: none Drug use: none Current living situation: ECF Activity Level: Independent ambulation Recent Out of Country Travel Within the Last 8 Weeks: No Exposure or Possible Exposure to Illness During Travel: No - Family History Father Living Status: Cause of : Emphyzema Hx Family Cardiac Disorders: No Hx Family Respiratory Disorders: Yes Hx Family Cancer: No Internal Medicine - H&P: Meds Albuterol Sulfate [Proair Hfa] 2 puff IH Q4H PRN 11/22/15 [History] Ipratropium/Albuterol Neb [Duoneb] 3 ml IH Q6HR 11/22/15 [History] Oxygen 2 l IH HS 11/22/15 [History] Losartan [Cozaar] 25 mg PO BID 08/21/16 [History] Metoprolol [Lopressor] 50 mg PO BID 07/01/17 [History] Acetaminophen 650 mg PO Q6H PRN 02/27/18 [History] Budesonide/Formoterol 160/4.5 [Symbicort 160/4.5] 2 puff IH BIDR 02/27/18 [History] Buspirone HCl [Buspar] 5 mg PO BID 02/27/18 [History] Divalproex (12 HR) [Depakote (12 HR)] 250 mg PO BID 02/27/18 [History] Mag Hydrox/Al Hydrox/Simeth [Antacid Suspension] 30 ml PO Q6H PRN 02/27/18 [History] Magnesium Hydroxide [Milk of Magnesia] 30 ml PO DAILY PRN 02/27/18 [History] Melatonin/Pyridoxine HCl (B6) [Melatonin 3 mg Tablet] 1 each PO HS 02/27/18 [History] Ondansetron HCl [Zofran] 4 mg PO Q8HR PRN 02/27/18 [History] Sertraline [Zoloft] 50 mg PO DAILY 02/27/18 [History] clonazePAM [Clonazepam] 0.5 mg PO BID 02/27/18 [History] risperiDONE [RisperDAL] 0.25 mg PO BID 02/27/18 [History] traZODone [TraZODone] 50 mg PO HS 02/27/18 [History] Allergy/AdvReac Type Severity Reaction Status Date / Time Penicillins Allergy Hives Verified 11/13/17 02:34 Sulfa (Sulfonamide Allergy Hives Verified 11/13/17 02:34 Antibiotics) rosuvastatin [From Crestor] AdvReac Gastrointestinal Verified 11/13/17 02:34 Upset tramadol AdvReac Dizziness Verified 11/13/17 02:34 ROS unobtainable: other Review of systems: Patient is a poor historian but review systems seems fairly reliable - Constitutional Constitutional: no fever(s), no falls - EENT Eyes: no change in vision Ears: no decreased hearing Nose, mouth and throat: no neck pain, no sore throat - Cardiovascular Cardiovascular ROS IM: no chest pain, no dyspnea, no dyspnea on exertion, no irregular heart rhythm, no lightheadedness - Respiratory Respiratory: no cough, no hemoptysis, no dyspnea on exertion, no wheezing, no chest congestion - Gastrointestinal Gastrointestinal: no abdominal pain, no constipation, no diarrhea, no vomiting - Genitourinary Genitourinary ROS male: no difficulty urinating, no dysuria, no hematuria - Musculoskeletal Musculoskeletal ROS IM: no arthralgias, no joint swelling, no muscle weakness - Integumentary Integumentary IM: no rash - Neurological Neurological ROS: no loss of vision, no weakness - Psychiatric Psychiatric: as per HPI - Constitutional Vitals: Temp Pulse Resp BP Pulse Ox 98.0 F 78 20 144/77 94 02/28/18 04:34 02/28/18 04:34 02/28/18 04:34 02/28/18 04:34 02/28/18 04:34 General appearance: Present: A&O X 2, no acute distress. Absent: answers questions appropriately Exam: He knew his name and date and children's names. Did not know month or date or year or what skilled nursing he came from - Head Head exam: Present: atraumatic - Eye Eye exam: Present: PERRL. Absent: scleral icterus - ENT ENT exam: Present: normal oropharynx, TM's normal bilaterally - Neck Neck exam general surgery: Absent: lymphadenopathy, tenderness, nuchal rigidity, thyromegaly - Respiratory Respiratory exam: Present: decreased breath sounds, CTAB. Absent: prolonged expiratory phase, rales, respiratory distress, rhonchi - Cardiovascular Cardiovascular exam: Present: irregular rhythm, +S1, +S2 - GI/Abdominal GI/Abdominal exam: Present: soft. Absent: mass, tenderness Additional comments: He is noted to have what appears to be hiccups/spasms noted in his abdomen intermittently - Extremities Exam Extremities exam: Absent: calf tenderness, mottling, pedal edema, tenderness - Neurological Exam Neurological exam: Present: alert, CN II-XII intact. Absent: oriented X3 Additional comments: He is oriented to his name, birthdate and children's names. He cannot recall the skilled nursing that he came from, however been there. He did not know the month or the year. He did recognize who I am. - Psychiatric Psychiatric exam: Present: normal affect, normal mood Internal Med - H&P Results - Labs CBC & Chem 7: 18 11:17 03/01/18 11:17 Labs: Short CBC 02/27/18 02/28/18 Range/Units 16:30 07:32 WBC 17.9 H 13.0 H (4.3-11.1) K/mcL Hgb 14.6 13.4 (12.9-16.9) g/dL Hct 41.1 38.8 (37.5-50.1) % Plt Count 171 158 (140-400) K/mcL Neutrophils # 16.5 H 10.1 H (1.6-8.9) K/mcL BMP 02/27/18 02/28/18 16:30 07:32 Sodium 121 L 129 L Potassium 4.7 4.9 Chloride 85 L 93 L Carbon Dioxide 29 32 H BUN 16 14 Creatinine 0.96 0.87 Glucose 149 H 98 Calcium 9.0 8.9 Cardiac Enzymes 02/27/18 Range/Units 16:30 Troponin I 0.03 (< 0.04) ng/mL Liver Function 02/27/18 Range/Units 16:30 Total Bilirubin 1.0 (0.3-1.0) mg/dL AST 26 (13-39) Units/L ALT 26 (7-52) Units/L Alkaline Phosphatase 85 (34-104) Units/L Albumin 4.1 (3.5-5.7) g/dL Urine 02/27/18 Range/Units 17:58 Urine Color Yellow (Yellow) Urine Clarity Slightly Cloudy A (Clear) Urine pH 5.5 (5.0-8.0) pH Units Ur Specific [place] <= 1.005 L (1.010-1.025) Urine Protein Negative (Neg-Trace) mg/dL Urine Glucose (UA) Normal (Normal) mg/dL Labs have been reviewed. Sodium improved from 119 at ECF to 121 and currently 129. White blood cell count improved from 17,000-13,000. Renal function is stable. Troponin is negative. Lactate improved from 2.4 to normal after IV fluids - EKG Data EKG comments: 02/28/18 10:28 monitoring coordinator shows atrial fibrillation which is rate controlled. - Impressions ITS Impressions Chest X-Ray 02/27/18 16:46 IMPRESSION: Streaky opacities at both lung bases, concerning for small infiltrates. D/ / Angel Howe MD / Angel Howe MD Interpreting Provider: Angel Howe MD - Diagnostic Studies Chest x-ray Additional comments: Chest x-ray was read as bi-basilar infiltrates.
[2018-02-28] MEDS: Mag Hydrox/Al Hydrox/Simeth 30 ML UDC PO PRN (13:48)
[2018-02-28] MEDS: Levofloxacin 750 MG/150 ML 750 MG/150 ML BAG IVPB SCH (16:33)
[2018-02-28] MEDS: Melatonin 3 MG TABLET PO SCH (21:08)
[2018-03-01] MEDS: Ipratropium/Albuterol Neb 3 ML IH SCH ×4 (04:47→12:17)
--- NOTE | 2018-03-01 11:05 | Internal Med Progress Note ---
Date of Encounter: 03/01/18 Time of Encounter: 11:05 - Assessment and plan (1) Bilateral pneumonia Current Visit: Yes Status: Acute Assessment and plan: He is showing improvement clinically and by laboratory with normalizing white blood cell count. No fever. No respiratory distress. Continue same treatment. He still has confusion which can be from his pneumonia, as well as hyponatremia as well as "sundowning" with his known dementia and hospitalization. Qualifiers: Pneumonia type: due to unspecified organism Lung location: lower lobe of lung Qualified Code(s): J18.1 - Lobar pneumonia, unspecified organism (2) Hyponatremia Current Visit: Yes Status: Acute Assessment and plan: Hyponatremia is now resolving. Sodium up to 130 after IV fluids and resuming his diet. No specific intervention otherwise. We will continue to monitor. This may also account for some of his confusion. (3) Change in mental status Current Visit: Yes Status: Acute Assessment and plan: He has gotten more agitated with his mental status changes. He has underlying dementia, now with agitation and refusal to take medications. He can be redirected. He is not delusional. He is allowing a laborer tanbark to draw his blood. We will try to resume his usual medications. We are continuing with his been today's pain, Risperdal, trazodone combination as per the psychiatrist. I think a lot of this exacerbation is from his hospitalization/sundowning. Qualifiers: Altered mental status type: disorientation Qualified Code(s): R41.0 - Disorientation, unspecified (4) Dementia Current Visit: Yes Status: Acute Assessment and plan: As discussed above. Certainly he is worse than his usual dementia baseline at this time. We will continue to monitor and follow. Qualifiers: Dementia type: unspecified type Dementia behavioral disturbance: with behavioral disturbance Qualified Code(s): F03.91 - Unspecified dementia with behavioral disturbance (5) Atrial fibrillation Current Visit: Yes Status: Chronic Assessment and plan: No angina or CHF. Continue rate control. No anticoagulation. Qualifiers: Atrial fibrillation type: chronic Qualified Code(s): I48.2 - Chronic atrial fibrillation (6) Anxiety Current Visit: Yes Status: Acute Assessment and plan: Continue his current medications. (7) DVT prophylaxis Current Visit: Yes Status: Acute - Subjective Interval history: Patient is a poor historian. He is upset and angry because he said he was told he could go home today. "I told him I did not want to come here". He does not recall where he came from. He states no one has told him why he is here. I am not sure that he even realizes he is in the hospital. I told him he is being treated for pneumonia and he states he did not know that. He denies any shortness of breath, cough, abdominal pain. He is not very conversant right now and is lying on his side and covering his head avoiding us Last evening I spoke with the nursing staff and they said he was getting angry at times, pulling off his continuous pulse oximeter monitor and frequently getting out of bed. He refused his medications this morning. He has not been violent, but he has certainly been unhappy with the staff. He did hold still and allow the lab to draw blood - Constitutional Vitals: Temp Pulse Resp BP Pulse Ox 97.5 F L 81 17 131/54 91 03/01/18 07:49 03/01/18 07:49 03/01/18 07:49 03/01/18 07:49 03/01/18 07:49 General appearance: Present: A&O X 1, no acute distress. Absent: answers questions appropriately Exam: Patient knows who he is and who I am. He states he did not know he was in the hospital. He states he did not know why he is here. - Head Head exam: Present: atraumatic - Neck Neck exam general surgery: Absent: nuchal rigidity - Respiratory Additional comments: Diminished breath sounds but clear except for occasional rare crackles in the left base. No orthopnea. No respiratory distress or cough. - Cardiovascular Cardiovascular exam: Present: irregular rhythm, +S1, +S2. Absent: systolic murmur - GI/Abdominal GI/Abdominal exam: Present: soft. Absent: tenderness - Extremities Exam Extremities exam: Absent: calf tenderness, pedal edema, tenderness - Neurological Exam Neurological exam: Present: altered (He knows who he is and who I am. Does not seem to know he is in a hospital or why he is here. Certainly does not know the day of the week.), CN II-XII intact, no focal deficits (No focal deficits strength kelly or lateralizing signs.) - Psychiatric Psychiatric exam: Present: agitated (Has been agitated and refusing medications. He is not combative. He was calm from me.). Absent: suicidal ideation Internal Medicine: Result - Labs CBC & Chem 7: 03/01/18 11:17 03/01/18 11:17 Labs: Labs are markedly improved. Every day his white blood cell count is improved. Sodium is 130 now. Renal function is normal. Consult Discharge Plan - Plan Referrals: Delma Mchugh MD [Primary Care Provider] -
--- NOTE | 2018-03-01 11:23 | Electrocardiograph Report ---
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
[2018-03-01 11:25] LABS: Basophils # 0.1 K/mcL (0.0-0.2); Basophils % 0.4 %; Eosinophils # 0.1 K/mcL (0.0-0.6); Eosinophils % 1.2 %; Hematocrit 37.6 % (37.5-50.1); Hemoglobin 13.2 g/dL (12.9-16.9); Immature Granulocytes % 0.3 % (0-4); Lymphocytes % 8.3 %; Mean Corpuscular HGB Conc 35.1 g/dL (31.6-35.5); Mean Corpuscular Hemoglobin 31.2 pg (28.0-33.3); Mean Corpuscular Volume 88.9 fL (83.0-100.0); Mean Platelet Volume 8.5 fL (9.4-12.4); Monocytes # 1.2 K/mcL (0.0-1.3); Monocytes % 10.1 %; Neutrophils # 9.6 K/mcL (1.6-8.9); Platelet Count 172 K/mcL (140-400); Red Blood Count 4.23 M/mcL (4.19-5.50); Red Cell Distribution Width 13.6 % (11.5-14.5); Segmented Neutrophils % 79.7 %
[2018-03-01 11:38] LABS: BUN/Creatinine Ratio 16 (6-26); Blood Urea Nitrogen 13 mg/dL (8-23); Calcium 8.9 mg/dL (8.6-10.3); Carbon Dioxide 30 mEq/L (23-29); Chloride 94 mEq/L (98-107); Glucose 101 mg/dL (70-105); Osmolality,Calculated 270 (280-300); Potassium 4.2 mEq/L (3.5-5.1); Sodium 130 mEq/L (136-145); eGFR For Non-African Americans > 60 (> 60)
[2018-03-01] MEDS: clonazePAM 0.5 MG TABLET PO SCH ×2 (12:12→19:47)
[2018-03-01] MEDS: Divalproex (12 HR) 250 MG TABLET PO SCH ×2 (12:12→19:46)
[2018-03-01] MEDS: *HR* Enoxaparin 40 MG/0.4 ML SYRINGE SQ SCH (12:12)
[2018-03-01] MEDS: risperiDONE 0.25 MG TABLET PO SCH ×2 (12:13→19:47)
[2018-03-01] MEDS: Levofloxacin 750 MG/150 ML 750 MG/150 ML BAG IVPB SCH (17:57)
--- NOTE | 2018-03-01 18:11 | Event Note ---
Date of Encounter: 03/01/18 Time of Encounter: 18:02 I reevaluated the patient this evening. Nurse had contacted me stating that the patient was refusing his medication this afternoon, he has taken it now though. He has been cranky but not violent. When I saw him he was curled up on his side in bed spoke with me, knew who I was but really did not look at me. He was agreeable to take his IV antibiotics tonight. He was upset stating that he did not want to come here, he said he told others that he did not want to be sent here. I told him that he was in the hospital because of pneumonia. He said he knew that now but he was still unhappy. I spoke with Erika his daughter rocio. She has been in to visit him. We talked about his improving medical status but his irritability and refusals. Overall I think that he will do better when he gets back to his usual environment in the [facility] with his friends. At the present time I do not think we need to scan his head or other intervention other than being sure he stays on his psych meds. His lungs show diminished breath sounds but clear. Heart showed irregularly irregular rhythm but controlled rate. Saturations have been good. He was a note medical distress
[2018-03-01] MEDS: Ipratropium/Albuterol Neb 3 ML IH PRN ×2 (18:20→22:11)
[2018-03-01] MEDS: Melatonin 3 MG TABLET PO SCH (19:47)
[2018-03-02] MEDS: Ipratropium/Albuterol Neb 3 ML IH PRN ×5 (01:54→16:27)
[2018-03-02 04:49] LABS: Basophils % 0.4 %; Eosinophils # 0.1 K/mcL (0.0-0.6); Eosinophils % 1.2 %; Hematocrit 36.2 % (37.5-50.1); Hemoglobin 12.7 g/dL (12.9-16.9); Immature Granulocytes % 0.5 % (0-4); Lymphocytes % 9.5 %; Mean Corpuscular HGB Conc 35.1 g/dL (31.6-35.5); Mean Corpuscular Hemoglobin 31.3 pg (28.0-33.3); Mean Corpuscular Volume 89.2 fL (83.0-100.0); Mean Platelet Volume 8.4 fL (9.4-12.4); Monocytes # 1.2 K/mcL (0.0-1.3); Neutrophils # 8.4 K/mcL (1.6-8.9); Platelet Count 164 K/mcL (140-400); Red Blood Count 4.06 M/mcL (4.19-5.50); Red Cell Distribution Width 13.4 % (11.5-14.5); Segmented Neutrophils % 77.4 %
[2018-03-02 05:04] LABS: BUN/Creatinine Ratio 15 (6-26); Blood Urea Nitrogen 12 mg/dL (8-23); Calcium 8.7 mg/dL (8.6-10.3); Carbon Dioxide 31 mEq/L (23-29); Chloride 93 mEq/L (98-107); Glucose 103 mg/dL (70-105); Osmolality,Calculated 274 (280-300); Potassium 4.2 mEq/L (3.5-5.1); Sodium 132 mEq/L (136-145); eGFR For Non-African Americans > 60 (> 60)
--- NOTE | 2018-03-02 07:24 | Internal Med Progress Note ---
Date of Encounter: 03/02/18 Time of Encounter: 07:19 - Assessment and plan (1) Bilateral pneumonia Current Visit: Yes Status: Acute Assessment and plan: Clinically and symptomatically he is improved. No fever, white blood cell count normal, saturation in the 90s on room air. He has occasional cough. He will have finished 4 doses of his antibiotics today. He may be stable enough [facility] if he is able to be up and ambulatory. Qualifiers: Pneumonia type: due to unspecified organism Lung location: lower lobe of lung Qualified Code(s): J18.1 - Lobar pneumonia, unspecified organism (2) Hyponatremia Current Visit: Yes Status: Acute Assessment and plan: Nearly returned back to normal. His confusion and agitation seems to be resolved as well. Recheck in the morning (3) Change in mental status Current Visit: Yes Status: Acute Assessment and plan: This morning he appears to be at his baseline as I recall from several months ago. He is pleasant, calm, cooperative and in a good spirit. We will see how long it lasts. I suspect his mental status change and agitation was from his pneumonia as well as hyponatremia, possibly coupled with some sundowning/dementia baseline. Qualifiers: Altered mental status type: disorientation Qualified Code(s): R41.0 - Disorientation, unspecified (4) Dementia Current Visit: Yes Status: Acute Assessment and plan: This morning he appears to be at his baseline as I recall from a few months ago. Qualifiers: Dementia type: unspecified type Dementia behavioral disturbance: with behavioral disturbance Qualified Code(s): F03.91 - Unspecified dementia with behavioral disturbance (5) Atrial fibrillation Current Visit: Yes Status: Chronic Assessment and plan: Chronic atrial fibrillation. Is not anticoagulated because of risk factors. He is rate controlled. No angina or CHF. Qualifiers: Atrial fibrillation type: chronic Qualified Code(s): I48.2 - Chronic atrial fibrillation (6) Anxiety Current Visit: Yes Status: Acute Assessment and plan: He continues with his psychiatric medications. (7) DVT prophylaxis Current Visit: Yes Status: Acute - Subjective Interval history: Patient is acting very differently this morning. He is very kind, complementary of the nursing staff last night, said he slept well and is very agreeable. He says he still has a cough but no sputum production. He denies any respiratory distress. Did not eat well yesterday. He denies any cardiac or respiratory symptoms this morning. The nurses state that he is a different man today. He is pleasant, cooperative, etc. He had a good night last night. He will sit up at the edge of the bed but does not get up and walk around on his own when he hears the bed alarm. . - Constitutional Vitals: Temp Pulse Resp BP Pulse Ox 98.8 F 81 20 157/92 91 03/02/18 04:30 03/02/18 04:30 03/02/18 04:30 03/02/18 04:30 03/02/18 04:30 General appearance: Present: A&O X 1, no acute distress. Absent: answers questi ons appropriately - Respiratory Respiratory exam: Present: decreased breath sounds, CTAB - Cardiovascular Cardiovascular exam: Present: irregular rhythm, +S1, +S2 - GI/Abdominal GI/Abdominal exam: Present: soft. Absent: tenderness - Extremities Exam Extremities exam: Absent: calf tenderness, pedal edema, tenderness - Psychiatric Psychiatric exam: Present: normal affect, normal mood Internal Medicine: Result - Labs CBC & Chem 7: 03/02/18 04:21 03/02/18 04:21 Labs: Short CBC 03/01/18 03/02/18 Range/Units 11:17 04:21 WBC 12.0 H 10.8 (4.3-11.1) K/mcL Hgb 13.2 12.7 L (12.9-16.9) g/dL Hct 37.6 36.2 L (37.5-50.1) % Plt Count 172 164 (140-400) K/mcL Neutrophils # 9.6 H 8.4 (1.6-8.9) K/mcL BMP 03/01/18 03/02/18 11:17 04:21 Sodium 130 L 132 L Potassium 4.2 4.2 Chloride 94 L 93 L Carbon Dioxide 30 H 31 H BUN 13 12 Creatinine 0.79 0.79 Glucose 101 103 Calcium 8.9 8.7 White blood cell count is normal now. Hemoglobin slightly diminished. Sodium is now up to 132. Renal function is good. Consult Discharge Plan - Plan Referrals: Delma Mchugh MD [Primary Care Provider] -
--- NOTE | 2018-03-02 07:37 | Discharge Summary ---
- NOTES TO OUTPATIENT PROVIDER Notes to Outpatient Provider: #1. Was treated for pneumonia with Levaquin. #2. His hyponatremia has resolved. Recommend follow-up electrolytes in a week or so. #3. Mental status changes appear to be back to his baseline now. They have been a combination of the infection, hyponatremia as well as de mentia/sundowning in the hospital. Date of Encounter: 03/02/18 Time of Encounter: 07:34 - Discharge Diagnosis (1) Bilateral pneumonia Priority: Primary Status: Acute Comments: He was found to have bibasilar pneumonia. He had leukocytosis, mental status changes, hypoxia. He was placed on Levaquin. He has occasional wheezing, but his lung findings are basically normal. He is regaining his ADLs. We will continue treatment with oral Levaquin at [facility]. Qualifiers: Pneumonia type: due to unspecified organism Lung location: lower lobe of lung Qualified Code(s): J18.1 - Lobar pneumonia, unspecified organism (2) Hyponatremia Priority: Secondary Status: Acute Comments: Was admitted with hyponatremia of 121. Had 119 in the longterm. It is now in the 130s. No specific intervention was made other than giving him IV fluids during his first day. Will need follow-up at [facility]. (3) Change in mental status Priority: Secondary Status: Acute Comments: When patient was admitted he had change in his baseline mental status. Likely contributed to his pneumonia as well as hyponatremia. 2 days prior to discharge he was agitated, withdrawn, refusing treatments. However, on Monday that cleared and he was back to his baseline. He is very calm, complementary of the nurses, pleasant and appreciative. Qualifiers: Altered mental status type: disorientation Qualified Code(s): R41.0 - Disorientation, unspecified (4) Dementia Priority: Secondary Status: Acute Comments: Currently his mental status appears be back to his baseline dementia as I recall from months prior to his longterm stay. We did not change any of his psychiatric medications. Qualifiers: Dementia type: unspecified type Dementia behavioral disturbance: with behavioral disturbance Qualified Code(s): F03.91 - Unspecified dementia with behavioral disturbance (5) Atrial fibrillation Priority: Secondary Status: Chronic Comments: He has chronic atrial fibrillation. No angina or CHF. He is rate controlled. No changes were made in his medication. Qualifiers: Atrial fibrillation type: chronic Qualified Code(s): I48.2 - Chronic atrial fibrillation (6) Anxiety Priority: Secondary Status: Acute Comments: He chronically has anxiety as well as dementia. We did not change his medications. As of right now he appears to be at his baseline (7) DVT prophylaxis Priority: Secondary Status: Acute Comments: He received Levaquin for DVT prophylaxis the hospital. Hospital course: Mr. Abraham is a 77 year old male was admitted via the emergency room from [facility] due to mental status changes and hyponatremia. He is found to have bibasilar pneumonia, hyponatremia, hypoxia and confusion beyond his baseline. See the diagnoses above. He improved to the point where he will return to [facility]. - Time Spent with Patient Total time spent providing and/or coordinating discharge services: - Discharge Medications Prescriptions: Levofloxacin [Levaquin] 750 mg PO DAILY 5 Days #5 tablet Home Medications: Albuterol Sulfate [Proair Hfa] 2 puff IH Q4H PRN 11/22/15 [History] Ipratropium/Albuterol Neb [Duoneb] 3 ml IH Q6HR 11/22/15 [History] Oxygen 2 l IH HS 11/22/15 [History] Losartan [Cozaar] 25 mg PO BID 08/21/16 [History] Metoprolol [Lopressor] 50 mg PO BID 07/01/17 [History] Acetaminophen 650 mg PO Q6H PRN 02/27/18 [History] Budesonide/Formoterol 160/4.5 [Symbicort 160/4.5] 2 puff IH BIDR 02/27/18 [History] Buspirone HCl [Buspar] 5 mg PO BID 02/27/18 [History] Divalproex (12 HR) [Depakote (12 HR)] 250 mg PO BID 02/27/18 [History] Mag Hydrox/Al Hydrox/Simeth [Antacid Suspension] 30 ml PO Q6H PRN 02/27/18 [History] Magnesium Hydroxide [Milk of Magnesia] 30 ml PO DAILY PRN 02/27/18 [History] Melatonin/Pyridoxine HCl (B6) [Melatonin 3 mg Tablet] 1 each PO HS 02/27/18 [History] Ondansetron HCl [Zofran] 4 mg PO Q8HR PRN 02/27/18 [History] Sertraline [Zoloft] 50 mg PO DAILY 02/27/18 [History] clonazePAM [Clonazepam] 0.5 mg PO BID 02/27/18 [History] risperiDONE [RisperDAL] 0.25 mg PO BID 02/27/18 [History] traZODone [TraZODone] 50 mg PO HS 02/27/18 [History] Levofloxacin [Levaquin] 750 mg PO DAILY 5 Days #5 tablet 03/02/18 [Rx] Allergies/Adverse Reactions: Allergy/AdvReac Type Severity Reaction Status Date / Time Penicillins Allergy Hives Verified 11/13/17 02:34 Sulfa (Sulfonamide Allergy Hives Verified 11/13/17 02:34 Antibiotics) rosuvastatin [From Crestor] AdvReac Gastrointestinal Verified 11/13/17 02:34 Upset tramadol AdvReac Dizziness Verified 11/13/17 02:34 Date of admission: 02/27/18 21:38 Primary care physician: Delma Mchugh Discharging clinician: Pepper Mcgovern Anticipated date of discharge: 03/03/18 - Constitutional Vitals: Temp Pulse Resp BP Pulse Ox 98.8 F 81 20 157/92 91 03/02/18 04:30 03/02/18 04:30 03/02/18 04:30 03/02/18 04:30 03/02/18 04:30 Exam: Exam was done on day of discharge by Dr. Ellsworth - Patient Status Disposition: Transfer LTC Condition: Good Functional capacity at discharge: independent ambulation Overall status at discharge: patient is progressing back to baseline - Discharge Instructions Follow Up With: Delma Mchugh MD [Primary Care Provider] - - Diet and Activity Activity: increase activity as tolerated Diet: regular diet
[2018-03-02] MEDS: *HR* Enoxaparin 40 MG/0.4 ML SYRINGE SQ SCH (08:36)
[2018-03-02] MEDS: clonazePAM 0.5 MG TABLET PO SCH ×2 (08:36→20:07)
[2018-03-02] MEDS: Divalproex (12 HR) 250 MG TABLET PO SCH ×2 (08:36→20:07)
[2018-03-02] MEDS: risperiDONE 0.25 MG TABLET PO SCH ×2 (08:36→20:07)
[2018-03-02] MEDS: Mag Hydrox/Al Hydrox/Simeth 30 ML UDC PO PRN ×2 (12:58→20:08)
[2018-03-02] MEDS: Ondansetron ODT 4 MG TAB.RAPDIS PO PRN (16:26)
[2018-03-02] MEDS: levoFLOXacin 750 MG TABLET PO SCH (17:21)
[2018-03-02] MEDS: Ipratropium/Albuterol Neb 3 ML IH SCH (17:52)
[2018-03-02] MEDS: Melatonin 3 MG TABLET PO SCH (20:07)
[2018-03-03] MEDS: Ondansetron ODT 4 MG TAB.RAPDIS PO PRN (00:50)
[2018-03-03] MEDS: Ipratropium/Albuterol Neb 3 ML IH PRN ×2 (03:01→11:37)
[2018-03-03 05:45] LABS: Basophils % 0.4 %; Eosinophils # 0.2 K/mcL (0.0-0.6); Eosinophils % 2.3 %; Hematocrit 36.3 % (37.5-50.1); Hemoglobin 12.7 g/dL (12.9-16.9); Immature Granulocytes % 0.3 % (0-4); Lymphocytes # 1.3 K/mcL (0.6-4.6); Lymphocytes % 14.3 %; Mean Corpuscular Hemoglobin 31.2 pg (28.0-33.3); Mean Corpuscular Volume 89.2 fL (83.0-100.0); Mean Platelet Volume 8.3 fL (9.4-12.4); Monocytes # 1.1 K/mcL (0.0-1.3); Monocytes % 12.7 %; Neutrophils # 6.3 K/mcL (1.6-8.9); Platelet Count 154 K/mcL (140-400); Red Blood Count 4.07 M/mcL (4.19-5.50); Red Cell Distribution Width 13.4 % (11.5-14.5)
[2018-03-03 06:07] LABS: BUN/Creatinine Ratio 17 (6-26); Blood Urea Nitrogen 16 mg/dL (8-23); Calcium 8.8 mg/dL (8.6-10.3); Carbon Dioxide 31 mEq/L (23-29); Chloride 96 mEq/L (98-107); Glucose 108 mg/dL (70-105); Osmolality,Calculated 276 (280-300); Potassium 4.1 mEq/L (3.5-5.1); Sodium 132 mEq/L (136-145); eGFR For Non-African Americans > 60 (> 60)
[2018-03-03 08:29] VITALS: BP 152/78
[2018-03-03] MEDS: *HR* Enoxaparin 40 MG/0.4 ML SYRINGE SQ SCH (08:44)
[2018-03-03] MEDS: Divalproex (12 HR) 250 MG TABLET PO SCH (08:44)
[2018-03-03] MEDS: clonazePAM 0.5 MG TABLET PO SCH (08:44)
[2018-03-03] MEDS: risperiDONE 0.25 MG TABLET PO SCH ×2 (09:31→10:57)
--- NOTE | 2018-03-03 11:37 | Internal Med Progress Note ---
Date of Encounter: 03/03/18 Time of Encounter: 11:36 - Assessment and plan (1) Bilateral pneumonia Current Visit: Yes Status: Acute Assessment and plan: He did receive a full course of IV Levaquin. His white count is back in range. He has improved. Qualifiers: Pneumonia type: due to unspecified organism Lung location: lower lobe of lung Qualified Code(s): J18.1 - Lobar pneumonia, unspecified organism (2) Hyponatremia Current Visit: Yes Status: Acute Assessment and plan: This did improve to 132 on the day of discharge with IV fluids. This could contribute to this on his mental status changes. He is back at baseline for that. (3) Atrial fibrillation Current Visit: Yes Status: Chronic Assessment and plan: This is a chronic and stable problem for him no changes remained his medication. He is rate controlled Qualifiers: Atrial fibrillation type: chronic Qualified Code(s): I48.2 - Chronic atrial fibrillation (4) Anxiety Current Visit: Yes Status: Acute Assessment and plan: This is been an ongoing issue for him he was continued on his Klonopin his Risperdal and Zoloft. No changes were made not medication during this hospitalization. (5) Dementia Current Visit: Yes Status: Acute Assessment and plan: There is been no changes in his baseline. He did have some mental status changes when he came in but he is back to his usual self Qualifiers: Dementia type: unspecified type Dementia behavioral disturbance: with behavioral disturbance Qualified Code(s): F03.91 - Unspecified dementia with behavioral disturbance (6) DVT prophylaxis Current Visit: Yes Status: Acute Assessment and plan: He did have Lovenox while inpatient (7) Change in mental status Current Visit: Yes Status: Acute Qualifiers: Altered mental status type: disorientation Qualified Code(s): R41.0 - Disorientation, unspecified - Subjective Interval history: He is feeling better today he still does not short of breath. But it is getting better he denies chest pain palpitations he is occasionally constipated of chronic issue for him he does not have any dysuria or urinary complaints. He does not have any pain. He is headed back to the [facility] today. He is pleasant today. - Constitutional Vitals: Temp Pulse Resp BP Pulse Ox 9.7 F L 100 18 152/78 92 03/03/18 08:00 03/03/18 08:00 03/03/18 08:00 03/03/18 08:00 03/03/18 08:00 General appearance: Present: A&O X 3, no acute distress, answers questions appropriately - Head Head exam: Present: atraumatic, normocephalic (Cleft lip) - Neck Neck exam general surgery: Present: supple, trachea midline. Absent: lymphadenopathy - Respiratory Respiratory exam: Present: decreased breath sounds. Absent: rhonchi - Cardiovascular Cardiovascular exam: Present: irregular rhythm, +S1, +S2. Absent: systolic murmur - GI/Abdominal GI/Abdominal exam: Present: normal bowel sounds, soft, no peritoneal signs. Absent: distended, guarding, tenderness - Extremities Exam Extremities exam: Present: warm. Absent: cyanotic, pedal edema - Skin Skin exam: Present: dry, warm. Absent: rash Internal Medicine: Result - Labs CBC & Chem 7: 03/03/18 05:40 03/03/18 05:40 Labs: Short CBC 03/03/18 Range/Units 05:40 WBC 9.0 (4.3-11.1) K/mcL Hgb 12.7 L (12.9-16.9) g/dL Hct 36.3 L (37.5-50.1) % Plt Count 154 (140-400) K/mcL Neutrophils # 6.3 (1.6-8.9) K/mcL BMP 03/03/18 05:40 Sodium 132 L Potassium 4.1 Chloride 96 L Carbon Dioxide 31 H BUN 16 Creatinine 0.94 Glucose 108 H Calcium 8.8 Consult Discharge Plan - Plan Referrals: Delma Mchugh MD [Primary Care Provider] - Prescriptions: Levofloxacin [Levaquin] 750 mg PO DAILY 5 Days #5 tablet
[2018-03-03] MEDS: levoFLOXacin 750 MG TABLET PO SCH (13:16)
== END 2018-03-03 14:10 | DRG 194 ==
LOC: INPGRE 16:19 → EMEROOGRE 16:19 → INPGRE 18:26
PROVIDERS: ADMIT Family Medicine; ATTEND Family Medicine

== ENCOUNTER 2019-03-18 12:41 | Inpatient (IN) ==
[2019-03-18] MEDS ORDERED: 0.9 % Sodium Chloride 1,000 ML IVC ONE (12:47)
[2019-03-18 13:02] LABS: Basophils % 0.4 %; Eosinophils # 0.2 K/mcL (0.0-0.6); Eosinophils % 1.9 %; Hemoglobin 14.3 g/dL (12.9-16.9); Immature Granulocytes % 0.2 % (0-4); Lymphocytes # 1.8 K/mcL (0.6-4.6); Lymphocytes % 17.8 %; Mean Corpuscular Volume 90.9 fL (83.0-100.0); Mean Platelet Volume 8.8 fL (9.4-12.4); Neutrophils # 7.2 K/mcL (1.6-8.9); Platelet Count 194 K/mcL (140-400); Red Blood Count 4.62 M/mcL (4.19-5.50); Red Cell Distribution Width 12.8 % (11.5-14.5); Segmented Neutrophils % 69.7 %; White Blood Count 10.3 K/mcL (4.3-11.1)
[2019-03-18 13:08] LABS: INR 1.4; Prothrombin Time 15.5 Seconds (9.4-12.1)
[2019-03-18 13:10] LABS: Activated Partial Thrombo Time 33.3 Seconds (26.0-36.0)
[2019-03-18 13:21] LABS: Alanine Aminotransferase 11 Units/L (7-52); Albumin 4.1 g/dL (3.5-5.7); Albumin/Globulin Ratio 1.3 (1.1-2.2); Alkaline Phosphatase 80 Units/L (34-104); Aspartate Amino Transferase 13 Units/L (13-39); BUN/Creatinine Ratio 16 (6-26); Bilirubin,Direct 0.1 mg/dL (0.0-0.2); Bilirubin,Indirect 0.6 mg/dL (0.0-1.0); Bilirubin,Total 0.7 mg/dL (0.3-1.0); Blood Urea Nitrogen 15 mg/dL (8-23); Calcium 9.4 mg/dL (8.6-10.3); Carbon Dioxide 32 mEq/L (23-29); Chloride 98 mEq/L (98-107); Globulin 3.1 g/dL (2.4-3.5); Glucose 120 mg/dL (70-105); Osmolality,Calculated 288 (280-300); Potassium 3.8 mEq/L (3.5-5.1); Sodium 138 mEq/L (136-145); Total Protein 7.2 g/dL (6.4-8.9); Troponin I 0.03 ng/mL (< 0.04); eGFR For African Americans > 60 (> 60); eGFR For Non-African Americans > 60 (> 60)
[2019-03-18 13:56] LABS: Bilirubin,Urine Negative (Negative); Blood,Urine Trace-intact (Negative); Clarity,Urine Clear (Clear); Color,Urine Yellow (Yellow); Glucose,Urine (UA) Normal (Normal); Ketones,Urine Negative (Negative); Leukocyte Esterase,Urine Negative (Negative); Nitrite,Urine Negative (Negative); Protein,Urine Negative (Neg-Trace); Urobilinogen,Urine Normal (Normal)
[2019-03-18 14:05] LABS: Bacteria,Urine Few per hpf (None-Few); Hyaline Casts,Urine Few per lpf (None-Few); RBC,Urine 0-3 per hpf (0-3); Squamous Epithelial Cell,Urine Few per lpf (None-Few); WBC,Urine 0-3 per hpf (0-3)
[2019-03-18] MEDS ORDERED: Naloxone 0.4 MG/ML INJ IVP PRN (15:02)
[2019-03-18] MEDS ORDERED: Ondansetron 4 MG/2 ML VIAL IVP PRN (15:02)
[2019-03-18] MEDS ORDERED: Acetaminophen 325 MG TABLET PO PRN (15:02)
[2019-03-18] MEDS ORDERED: Mag Hydrox/Al Hydrox/Simeth 30 ML UDC PO PRN (15:02)
[2019-03-18] MEDS ORDERED: MOM Conc 10 ML UD.LIQ PO PRN (15:02)
[2019-03-18] MEDS ORDERED: Ipratropium/Albuterol Neb 3 ML ONE ×2 (15:13→17:25)
[2019-03-18] MEDS ORDERED: Ipratropium/Albuterol Neb 3 ML IH SCH (15:15)
[2019-03-18] MEDS: levoFLOXacin 500 MG/100 ML 500 MG/100 ML BAG IVPB SCH (18:31)
[2019-03-18] MEDS: 0.9 % Sodium Chloride 1,000 ML IVC SCH (18:32)
[2019-03-18] MEDS: *HR* Rivaroxaban 10 MG TABLET PO SCH (18:41)
[2019-03-18] MEDS: Albuterol 2.5 MG/3 ML NEBULIZER IH PRN (18:56)
[2019-03-18] MEDS: traZODone 50 MG TABLET PO SCH (19:59)
[2019-03-18] MEDS: clonazePAM 0.5 MG TABLET PO SCH (19:59)
[2019-03-18] MEDS: Divalproex (12 HR) 250 MG TABLET PO SCH (19:59)
[2019-03-18] MEDS: risperiDONE 0.25 MG TABLET PO SCH (20:06)
[2019-03-18] MEDS: Ipratropium/Albuterol Neb 3 ML IH SCH (20:55)
[2019-03-18] MEDS: MethylPREDNISolone 40 MG/ML VIAL IVP SCH (23:55)
[2019-03-19] MEDS ORDERED: Isovue-370 500 ML BOTTLE IVP ONE (03:44)
[2019-03-19] MEDS: Ipratropium/Albuterol Neb 3 ML IH SCH ×4 (04:27→22:34)
[2019-03-19] MEDS ORDERED: *HR* Enoxaparin 40 MG/0.4 ML SYRINGE SQ SCH (07:00)
[2019-03-19] MEDS: MethylPREDNISolone 40 MG/ML VIAL IVP SCH ×3 (09:39→23:10)
[2019-03-19] MEDS: Divalproex (12 HR) 250 MG TABLET PO SCH ×2 (11:06→22:34)
[2019-03-19] MEDS: Furosemide 40 MG TABLET PO SCH (11:07)
[2019-03-19] MEDS: clonazePAM 0.5 MG TABLET PO SCH ×2 (11:07→22:34)
[2019-03-19] MEDS: risperiDONE 0.25 MG TABLET PO SCH ×2 (11:08→22:34)
[2019-03-19] MEDS: 0.9 % Sodium Chloride 1,000 ML IVC SCH (11:30)
[2019-03-19] MEDS: levoFLOXacin 500 MG/100 ML 500 MG/100 ML BAG IVPB SCH (16:09)
[2019-03-19] MEDS: *HR* Rivaroxaban 10 MG TABLET PO SCH (16:11)
[2019-03-19] MEDS: Albuterol 2.5 MG/3 ML NEBULIZER IH PRN (19:16)
[2019-03-19] MEDS: traZODone 50 MG TABLET PO SCH (22:34)
[2019-03-20 05:44] LABS: Hematocrit 44.1 % (37.5-50.1); Hemoglobin 14.8 g/dL (12.9-16.9); Mean Corpuscular HGB Conc 33.6 g/dL (31.6-35.5); Mean Corpuscular Volume 92.3 fL (83.0-100.0); Platelet Count 210 K/mcL (140-400); Red Blood Count 4.78 M/mcL (4.19-5.50); Red Cell Distribution Width 12.8 % (11.5-14.5); White Blood Count 14.3 K/mcL (4.3-11.1)
[2019-03-20 06:00] LABS: BUN/Creatinine Ratio 21 (6-26); Blood Urea Nitrogen 19 mg/dL (8-23); Calcium 9.7 mg/dL (8.6-10.3); Carbon Dioxide 31 mEq/L (23-29); Chloride 102 mEq/L (98-107); Glucose 123 mg/dL (70-105); Osmolality,Calculated 296 (280-300); Potassium 4.6 mEq/L (3.5-5.1); Sodium 141 mEq/L (136-145); eGFR For African Americans > 60 (> 60); eGFR For Non-African Americans > 60 (> 60)
[2019-03-20] MEDS: Ipratropium/Albuterol Neb 3 ML IH SCH ×4 (06:11→21:30)
[2019-03-20] MEDS: Divalproex (12 HR) 250 MG TABLET PO SCH (08:30)
[2019-03-20] MEDS: MethylPREDNISolone 40 MG/ML VIAL IVP SCH (08:42)
[2019-03-20] MEDS: risperiDONE 0.25 MG TABLET PO SCH ×2 (08:44→21:30)
[2019-03-20] MEDS: Furosemide 40 MG TABLET PO SCH (08:44)
[2019-03-20] MEDS: clonazePAM 0.5 MG TABLET PO SCH ×2 (08:44→21:30)
[2019-03-20] MEDS: amLODIPine 5 MG TABLET PO SCH (11:52)
[2019-03-20] MEDS: *HR* Rivaroxaban 10 MG TABLET PO SCH (15:09)
[2019-03-20] MEDS: levoFLOXacin 500 MG/100 ML 500 MG/100 ML BAG IVPB SCH (15:13)
[2019-03-20] MEDS ORDERED: Doxycycline 100 MG VIAL ONE (17:35)
[2019-03-20] MEDS: Doxycycline 100 MG in 0.9 % Sodium Chloride Mini Bag 100 ML IVPB SCH (17:48)
[2019-03-20] MEDS: traZODone 50 MG TABLET PO SCH (21:30)
[2019-03-20] MEDS: Divalproex Sodium 125 MG CAPSULE PO SCH (21:30)
[2019-03-21] MEDS: Ipratropium/Albuterol Neb 3 ML IH SCH ×4 (05:28→20:40)
[2019-03-21] MEDS: Doxycycline 100 MG in 0.9 % Sodium Chloride Mini Bag 100 ML IVPB SCH ×2 (05:31→17:48)
[2019-03-21] MEDS: Divalproex Sodium 125 MG CAPSULE PO SCH ×2 (10:19→21:04)
[2019-03-21] MEDS: Furosemide 40 MG TABLET PO SCH (10:19)
[2019-03-21] MEDS: risperiDONE 0.25 MG TABLET PO SCH ×2 (10:19→21:03)
[2019-03-21] MEDS: MethylPREDNISolone 40 MG/ML VIAL IVP SCH (10:19)
[2019-03-21] MEDS: amLODIPine 5 MG TABLET PO SCH (10:20)
[2019-03-21] MEDS: clonazePAM 0.5 MG TABLET PO SCH ×2 (10:20→21:02)
[2019-03-21] MEDS: levoFLOXacin 500 MG/100 ML 500 MG/100 ML BAG IVPB SCH (14:54)
[2019-03-21] MEDS: *HR* Rivaroxaban 10 MG TABLET PO SCH (17:44)
[2019-03-21] MEDS: traZODone 50 MG TABLET PO SCH (21:04)
[2019-03-22] MEDS: Ipratropium/Albuterol Neb 3 ML IH SCH ×2 (04:09→08:02)
[2019-03-22] MEDS: Doxycycline 100 MG in 0.9 % Sodium Chloride Mini Bag 100 ML IVPB SCH (05:46)
[2019-03-22 07:27] VITALS: BP 126/73
[2019-03-22] MEDS: clonazePAM 0.5 MG TABLET PO SCH (08:33)
[2019-03-22] MEDS: Divalproex Sodium 125 MG CAPSULE PO SCH (08:33)
[2019-03-22] MEDS: MethylPREDNISolone 40 MG/ML VIAL IVP SCH (08:33)
[2019-03-22] MEDS: amLODIPine 5 MG TABLET PO SCH (08:33)
[2019-03-22] MEDS: Furosemide 40 MG TABLET PO SCH (08:33)
[2019-03-22] MEDS: risperiDONE 0.25 MG TABLET PO SCH (08:33)
== END 2019-03-22 14:20 | DRG 64 ==
LOC: INPGRE 12:41 → EMEROOGRE 12:41 → INPGRE 16:32 → SUATTDRO 03-19 07:47
PROVIDERS: ADMIT Internal Medicine; ATTEND Family Medicine